=== PATIENT | female | born 1970 | race Caucasian/White ===

== ENCOUNTER 2020-11-22 21:24 | Observation (INO) ==
[2020-11-22] MEDS ORDERED: Ondansetron 4 MG/2 ML VIAL IVP PRN (21:32)
[2020-11-22] MEDS ORDERED: Naloxone 0.4 MG/ML INJ IVP PRN (21:32)
[2020-11-22] MEDS ORDERED: Acetaminophen 325 MG TABLET PO PRN (21:32)
[2020-11-22] MEDS ORDERED: *HR* HYDROcodone/Acet 5/325 mg TABLET PO PRN (21:32)
[2020-11-22] MEDS ORDERED: Isovue-370 500 ML BOTTLE IVP ONE (21:34)
[2020-11-22 22:20] VITALS: BP 158/110
[2020-11-22] MEDS ORDERED: *HR* Heparin 5,000 UNIT/ML VIAL IVP ONE (22:50)
[2020-11-22] MEDS ORDERED: *HR* Heparin 5,000 UNIT/ML VIAL IVP PRN ×2 (22:50)
[2020-11-22] MEDS ORDERED: Heparin 25,000UNIT/250ML 1/2NS 25,000 UNIT/250 ML IV.SOLN IVC SCH (23:00)
[2020-11-22] MEDS ORDERED: Aspirin Enteric Coated 81 MG Tablet PO SCH (23:45)
[2020-11-22 23:49] LABS: Hematocrit 39.1 % (35.3-44.9); Hemoglobin 13.8 g/dL (11.5-15.4); Mean Corpuscular HGB Conc 35.3 g/dL (31.6-35.5); Mean Corpuscular Hemoglobin 31.7 pg (28.0-33.3); Mean Corpuscular Volume 89.7 fL (83.0-100.0); Mean Platelet Volume 10.9 fL (9.4-12.4); Platelet Count 162 K/mcL (140-400); Red Blood Count 4.36 M/mcL (3.82-4.97); White Blood Count 7.2 K/mcL (4.3-11.1)
[2020-11-23 00:06] LABS: INR 2.8; Prothrombin Time 31.2 Seconds (9.4-12.1)
[2020-11-23 00:15] LABS: Heparin anti-factor XA UFH > 2.61 IU/mL (0.30-0.70)
[2020-11-23] MEDS ORDERED: Thyroid (Amour) 30 MG TABLET PO SCH (09:00)
== END 2020-11-23 01:45 | disposition short-term general hospital (02) ==
LOC: INPPIK → PREINTOOBSV 21:31
PROVIDERS: ADMIT Family Medicine; ATTEND Family Medicine